=== PATIENT | male | born 1980 | race Caucasian/White ===

== ENCOUNTER 2018-02-01 23:06 | Inpatient (IN) | payer OTHER ==
[~2018-02-01] VITALS: Ht 170.2 cm; Wt 74.8 kg
--- NOTE | 2018-02-01 23:21 | NUR ---
BIBRA 860 PT "FOUND SEATED INFRONT OF A SHOPPING MALL"; ALCOHOL BREATH. NO S/S OF TRAUMA NOTED; "FSBS 146G/DL" PT AOX2 AT THIS TIME. RR EVEN AND UNLABORED. NO SOB NOTED. NAD NOTED. NO NVD AT THIS TIME. PT GOWNED AND PLACED ON MONITOR. DR. LAWSON AT BEDSIDE FOR EVAL.
--- NOTE | 2018-02-01 23:25 | NUR ---
CALLED LAB FOR BLOOD DRAW.
[2018-02-01] MEDS ORDERED: HALOPERIDOL LACTATE INJ 5 MG/ML VIAL IM ONE (23:30)
--- NOTE | 2018-02-01 23:32 | NUR ---
LAB AT BEDSIDE FOR BLOOD DRAW.
--- NOTE | 2018-02-01 23:35 | NUR ---
PT TO CT.
[2018-02-01 23:47] LABS: HEMATOCRIT 29 % (39-51); HEMOGLOBIN 9.3 g/dL (13.5-17.5); LYMPHOCYTES # (AUTO) 2.3 /CMM (0.8-4.8); MEAN CORPUSCULAR HGB CONC 32 g/dl (31.0-36.0); MEAN CORPUSCULAR VOLUME 85 fL (80-96); MONOCYTES # (AUTO) 0.7 /CMM (0.1-1.30); NEUTROPHILS # (AUTO) 1.4 /CMM (1.8-8.9); PLATELET COUNT (AUTO) 169 /CMM (150-450); RDW COEFFICIENT OF VARIATION 21.3 (11.5-15.0); RED BLOOD CELL COUNT(AUTO) 3.44 MIL/uL (4.5-6.0); WHITE BLOOD COUNT (AUTO) 4.7 K/uL (4.3-11.0)
[2018-02-01 23:57] LABS: CARBON DIOXIDE 23 mmol/L (21-32); CHLORIDE 89 mmol/L (98-107); CREATININE 0.9 mg/dL (0.6-1.3); GLUCOSE 84 mg/dL (74-106); POTASSIUM 3.6 mmol/L (3.5-5.1); SODIUM SERUM 122 mmol/L (136-145); UREA NITROGEN, BLOOD 6 mg/dL (7-18)
[2018-02-02 00:04] LABS: ALANINE AMINOTRANSFERASE 22 U/L (12-78); ALBUMIN 3.5 g/dL (3.4-5.0); ALCOHOL, BLOOD 446 mg/dL (0-0); ALKALINE PHOSPHATASE 191 U/L (46-116); ASPARTATE AMINOTRANSFERASE 34 U/L (15-37); BILIRUBIN,DIRECT 0.2 mg/dL (0.0-0.2); BILIRUBIN,TOTAL 0.4 mg/dL (0.2-1.0); TOTAL PROTEIN, SERUM 8.1 g/dL (6.4-8.2)
[2018-02-02 00:05] LABS: ACETAMINOPHEN < 0 ug/ml (10-30); SALICYLATE 0.4 mg/dL (2.8-20.0)
[2018-02-02 00:23] LABS: EOSINOPHILS % (MANUAL) 4 % (0-4); LYMPHOCYTES % (MANUAL) 66 % (16-48); MONOCYTES % (MANUAL) 5 % (0-11.0); NEUTROPHILS % (MANUAL) 25 (42-76)
[2018-02-02 01:13] LABS: CALCIUM, SERUM 7.9 mg/dL (8.5-10.1); CREATININE 0.8 mg/dL (0.6-1.3); POTASSIUM 3.9 mmol/L (3.5-5.1)
[2018-02-02] MEDS ORDERED: IV D5/ 0.9% NACL 1,000 ML IV ONE (01:28)
[2018-02-02] MEDS ORDERED: Thiamine 100 MG in IV D5W 50 ML IV SCH ×2 (01:30→02:00)
[2018-02-02] MEDS ORDERED: MAGNESIUM HYDROXIDE 30 ML UDC PO PRN (02:00)
[2018-02-02] MEDS ORDERED: ONDANSETRON HCL/PF 4 MG/2 ML VIAL IVP PRN (02:00)
[2018-02-02] MEDS ORDERED: ACETAMINOPHEN 325 MG TABLET PO PRN (02:00)
[2018-02-02] MEDS ORDERED: HYDROCODONE/APAP 5/325MG 1 EACH TABLET PO PRN (02:00)
[2018-02-02] MEDS ORDERED: Z GUARD REMEDY 2 OZ OINT TP PRN (02:00)
[2018-02-02] MEDS ORDERED: ZOLPIDEM TARTRATE 5 MG TABLET PO PRN (02:00)
[2018-02-02] MEDS ORDERED: MAG HYDROX/AL HYDROX/SIMETH 30 ML UDC PO PRN (02:00)
--- NOTE | 2018-02-02 02:15 | NUR ---
REPORT GIVEN TO ANUP MUNSON FOR JUNAID FOR TELE BED 324-1
--- NOTE | 2018-02-02 02:33 | NUR ---
haldol IM NOT GIVEN. PT IS SLEEPING.
--- NOTE | 2018-02-02 02:48 | NUR ---
PT TRANSFER TO MED/SURG VIA [facility]. PT IS STABLE.
--- NOTE | 2018-02-02 02:50 | NUR ---
MS/TELE/RN ADMITTED PATIENT FROM [facility] VIA [facility], PATIENT WAS SLEEPING, AROUSABLE, APPEAR COMFORTABLE, NO S/S OF PAIN, NO SIGNS OF DISTRESS NOTED. UNABLE TO DO ADMISSION THE PATIENT WAS SLEEPING AND NOT ABLE TO ANSWER TO QUESTIONS. MADE PATIENT COMFORTABLE IN BED, CLEANED, PUT CALL LIGHT IN REACH. ADMISSION ORDERS CARRIED OUT, WILL MONITOR.
[2018-02-02 04:00] VITALS: BP 116/73
[2018-02-02] MEDS: IV NS 0.9% 1,000 ML IV PRN ×2 (05:32→22:39)
--- NOTE | 2018-02-02 06:06 | NUR ---
MS/TELE/RN PATIENT STILL SLEEPING, APPEAR COMFORTABLE, BREATHING EVEN AND UNLABORED, CALL LIGHT IN REACH. ALL NEEDS ATTENDED AT THIS TIME, WILL CONTINUE TO MONITOR.
[2018-02-02 06:33] LABS: EOSINOPHILS % (AUTO) 9.7 % (0.0-6.0); HEMATOCRIT 28 % (39-51); HEMOGLOBIN 8.9 g/dL (13.5-17.5); LYMPHOCYTES # (AUTO) 2.2 /CMM (0.8-4.8); LYMPHOCYTES % (AUTO) 56.3 % (20.0-44.0); MEAN CORPUSCULAR HGB CONC 32 g/dl (31.0-36.0); MEAN CORPUSCULAR VOLUME 84 fL (80-96); MONOCYTES # (AUTO) 0.6 /CMM (0.1-1.30); MONOCYTES % (AUTO) 16.7 % (2.0-12.0); NEUTROPHILS # (AUTO) 0.7 /CMM (1.8-8.9); NEUTROPHILS % (AUTO) 17.3 % (43.0-81.0); PLATELET COUNT (AUTO) 132 /CMM (150-450); RDW COEFFICIENT OF VARIATION 21.9 (11.5-15.0); RED BLOOD CELL COUNT(AUTO) 3.28 MIL/uL (4.5-6.0); WHITE BLOOD COUNT (AUTO) 3.8 K/uL (4.3-11.0)
[2018-02-02 06:49] LABS: ALBUMIN 3.1 g/dL (3.4-5.0); BILIRUBIN,TOTAL 0.4 mg/dL (0.2-1.0); CALCIUM, SERUM 7.9 mg/dL (8.5-10.1); CREATININE 0.8 mg/dL (0.6-1.3); MAGNESIUM 1.5 mg/dL (1.8-2.4); PHOSPHORUS 3.4 mg/dL (2.5-4.9); POTASSIUM 3.5 mmol/L (3.5-5.1); TOTAL PROTEIN, SERUM 7.4 g/dL (6.4-8.2)
--- NOTE | 2018-02-02 07:30 | NUR ---
VERY GROGGY ON AM ROUNDS.
--- NOTE | 2018-02-02 07:40 | NUR ---
RN CHECKING LABS IN COMPUTER,QUESTIONED PT.HE STATES HE IS DIABETIC.IN COMPUTER STATES BGL 66 RECHECKED WITH ACCU-CHECK MACHINE AND GOT 94.
[2018-02-02 08:00] VITALS: BP_SYST 109; BP_SYST 118; BP_DIAS 61; BP_DIAS 69
[2018-02-02 08:03] LABS: EOSINOPHILS % (MANUAL) 12 % (0-4); LYMPHOCYTES % (MANUAL) 58 % (16-48); MONOCYTES % (MANUAL) 12 % (0-11.0); NEUTROPHILS % (MANUAL) 18 (42-76)
[2018-02-02] MEDS ORDERED: LEVE500T9 PO (08:09)
[2018-02-02] MEDS ORDERED: DIAZ5TAB PO (08:09)
[2018-02-02] MEDS: Folic acid 1 MG in IV D5W 50 ML IV SCH (09:09)
[2018-02-02] MEDS: Magnesium 1GM/D5W 100ML PREMIX 100 ML IV SCH ×2 (10:27→11:40)
--- NOTE | 2018-02-02 11:30 | NUR ---
PT. RECEIVING VITAMINS IV.ADDITIONALLY MG REPLACEMENT BEING DONE.
--- NOTE | 2018-02-02 12:00 | NUR ---
Yung NARAYANAN IN TO SEE PT.
--- NOTE | 2018-02-02 12:10 | NUR ---
DAVY ALERTED THAT MED RECON NEEDS TO BE DONE AND PT. IS ON DAVY PEREIRA AGREEABLE.
[2018-02-02] MEDS: Thiamine 100 MG in IV D5W 50 ML IV SCH (13:01)
[2018-02-02 16:00] VITALS: BP 132/85
--- NOTE | 2018-02-02 17:07 | NUR ---
HEAR MOANING FROM OUTSIDE PT. RM,RN IN TO RM. TO FIND PT. HAVING WHAT APPEARS TO BE GRAND MAL SEIZURE,LASTED TILL APPROXIMATELY 2 MINUTES TILL 1709.LADY CONTACTED,ORDERS RECEIVED.VS TAKEN 138/84,HRATE [id number] 94%.O2 ON INITIALLY AT 2L.
--- NOTE | 2018-02-02 17:29 | NUR ---
JUST RECEIVED ATIVAN ORDER AND 2 MG IV GIVEN-PHARMACY CONTACTED WELL TO PREPARE KEPPRA,AND MED GIVEN.
[2018-02-02] MEDS ORDERED: LORAZEPAM INJ 2 MG/ML VIAL IV PRN (17:30)
[2018-02-02] MEDS ORDERED: LEVETIRACETAM (500MG) 500 MG in IV NS 0.9% 100 ML IV ONE (18:00)
--- NOTE | 2018-02-02 18:07 | NUR ---
RANDALL LARSON IVPB.PT. TOLERATING WELL.AT FIRST SPEECH A LITTLE GARBLED.AND PT. DAZED.IV SITE LT. HAND LOOSE AND RETAPED. NEW IV START RT. FOREARM WITH #22 ANGIO.
--- NOTE | 2018-02-02 18:30 | NUR ---
PT. TO RECEIVE ORAL RANDALL PARRISH.
--- NOTE | 2018-02-02 19:35 | NUR ---
MS RN NOTE RECEIVED PATIENT FROM DAY SHIFT, PATIENT IS ALERT AND ORIENTEDX2, NO S/S OF RESPIRATORY DISTRESS AND DENIES PAIN AT THIS TIME. PT HAD AN EPISODE OF SZ THIS AFTERNOON, SEIZURE PRECAUTION WILL BE OBSERVED. IV ON RIGHT FA AND LEFT HAND ARE PATENT AND INTACT, FLUID IS RUNNING. SRX2, BED IN LOW POSITION, CALL LIGHT WITHIN REACH, WILL CONTINUE TO MONITOR PATIENT.
[2018-02-02 20:00] VITALS: BP 124/72
[2018-02-02] MEDS: LEVETIRACETAM (250 MG) 250 MG TABLET PO SCH (20:52)
[2018-02-02 23:52] LABS: APPEARANCE,URINE CLEAR (CLEAR); BILIRUBIN,URINE NEGATIVE (NEGATIVE); BLOOD, URINE NEGATIVE Ery/uL (NEGATIVE); COLOR,URINE YELLOW (YELLOW); KETONES,URINE NEGATIVE (NEGATIVE); LEUKOCYTE ESTERASE ,URINE NEGATIVE (NEGATIVE); NITRITE, URINE NEGATIVE (NEGATIVE); PROTEIN,URINE NEGATIVE (NEGATIVE); UGLUCOSE NEGATIVE (NEGATIVE); UROBILINOGEN,URINE 0.2 EU/dL (0.2)
--- NOTE | 2018-02-03 06:35 | NUR ---
MS RN NOTE PATIENT IS RESTING IN BED COMFORTABLY, NO S/S OF RESPIRATORY DISTRESS AND NO PAIN REPORTED. NO ACUTE EVENT NOTED THROUGHOUT THE SHIFT, TWO IV SITES ARE PATENT AND INTACT, FLUID IS STILL RUNNING. WILL ENDORSE TO DAY SHIFT NURSE FOR JUNAID.
--- NOTE | 2018-02-03 07:52 | NUR ---
RN OPENING NOTES RECEIVED PT. PT IS STABLE AND SLEEPING IN BED. NO S/S OF RESP DISTRESS OR SOB. PT IS ON SEIZURE PRECAUTIONS. PM NURSE REPORTED NO SZ ACTIVITY. LAST SEIZURE OCCURRED DURING DAY ON 02/02 LASTING 2 MINS. PT REFUSED AM LABS, WILL F/U WITH PT. SAFETY MEASURES IN PLACE, CALL LIGHT WITHIN REACH. WILL CONTINUE TO MONITOR.
[2018-02-03] MEDS: LEVETIRACETAM (250 MG) 250 MG TABLET PO SCH ×2 (08:51→20:50)
[2018-02-03] MEDS: Folic acid 1 MG in IV D5W 50 ML IV SCH (08:53)
[2018-02-03] MEDS: Thiamine 100 MG in IV D5W 50 ML IV SCH (08:53)
[2018-02-03 09:00] VITALS: BP 145/75
[2018-02-03] MEDS ORDERED: IBUPROFEN SUSP 100 MG/5 ML UDC ONE (11:04)
[2018-02-03 11:10] LABS: HEMATOCRIT 29 % (39-51); HEMOGLOBIN 9.2 g/dL (13.5-17.5); MEAN CORPUSCULAR HGB CONC 32 g/dl (31.0-36.0); MEAN CORPUSCULAR VOLUME 86 fL (80-96); PLATELET COUNT (AUTO) 108 /CMM (150-450); RDW COEFFICIENT OF VARIATION 21.3 (11.5-15.0); WHITE BLOOD COUNT (AUTO) 3.3 K/uL (4.3-11.0)
[2018-02-03 11:29] LABS: ALBUMIN 3.3 g/dL (3.4-5.0); BILIRUBIN,TOTAL 0.7 mg/dL (0.2-1.0); CREATININE 0.9 mg/dL (0.6-1.3); MAGNESIUM 1.8 mg/dL (1.8-2.4); PHOSPHORUS 3.9 mg/dL (2.5-4.9); POTASSIUM 4.3 mmol/L (3.5-5.1); TOTAL PROTEIN, SERUM 7.8 g/dL (6.4-8.2)
[2018-02-03 12:01] LABS: EOSINOPHILS % (MANUAL) 5 % (0-4); LYMPHOCYTES % (MANUAL) 24 % (16-48); MONOCYTES % (MANUAL) 10 % (0-11.0); NEUTROPHILS % (MANUAL) 61 (42-76)
[2018-02-03 16:00] VITALS: BP 150/108
[2018-02-03] MEDS: IV NS 0.9% 1,000 ML IV PRN (16:56)
--- NOTE | 2018-02-03 18:23 | NUR ---
RN CLOSING NOTE PT IN BED RESTING. NO S/S OF RESP DISTRESS OR SOB. NO C/O PAIN AT THIS TIME. PT DID NOT EXP ANY SZ ACTIVITY THROUGHOUT DAY. SEIZURE PRECAUTIONS REMAIN. FLUID RESTRICTION OF 1L/DAY REMAINS HYPONATREMIA PERSISTS. ALL PT NEEDS ANTICIPATED AND MET SAFETY MEASURES IN PLACE, CALL LIGHT WITHIN REACH. WILL ENDORSE TO LEAD ENTERPRISE ARCHITECT FOR JUNAID.
--- NOTE | 2018-02-03 19:30 | NUR ---
RN NOTES RECEIVED PATIENT IN BED AWAKE. AO X 2, ABLE TO MAKE NEEDS KNOWN. NO ACUTE DISTRESS NOTED. DENIES ANY PAIN AT THIS TIME. IV SITE PATENT, INTACT; IVF INFUSING ORDERED. SAFETY REMINDERS GIVEN. ON LOW BED WITH BILATERAL UPPER SIDE RAILS UP. CALL MERINO WITHIN EASY REACH. WILL CONTINUE TO MONITOR.
[2018-02-03 20:00] VITALS: BP 147/94
--- NOTE | 2018-02-04 06:10 | NUR ---
RN NOTES PER DR. BEGUM, NO NEED FOR BLOOD DRAW (NA LEVEL) TODAY.
--- NOTE | 2018-02-04 06:17 | NUR ---
RN NOTES PATIENT IN BED ASLEEP, EASILY AROUSABLE. RESPIRATIONS EVEN. NO SIGNS OF PAIN NOTED. DUE MEDS GIVEN WITH NO ASE NOTED. IVF INFUSING ORDERED. NEEDS ATTENDED. SAFETY PRECAUTIONS AND COMFORT MEASURES IN PLACE. WILL GIVE REPORT TO DAY SHIFT FOR CONTINUITY OF CARE.
[2018-02-04] MEDS: IV NS 0.9% 1,000 ML IV PRN (06:40)
[2018-02-04 08:00] VITALS: BP 150/109
--- NOTE | 2018-02-04 08:15 | NUR ---
RN OPENING NOTES RECEIVED PT. PT IS STABLE AND RESTING IN BED. NO S/S OF RESP DISTRESS/SOB. IV ACCESS DISLODGED UNINTENTIONALLY, REMOVED CATHETER FROM PT. PER R&D LAB TECHNICIAN REPORT, NO ADDITIONAL SZ ACTIVITY NOTED. PT UP FOR POSSIBLE D/C IN AM. SAFETY MEASURES IN PLACE, CALL LIGHT WITHIN REACH. WILL CONTINUE TO MONITOR.
[2018-02-04] MEDS: LEVETIRACETAM (250 MG) 250 MG TABLET PO SCH (08:44)
[2018-02-04 09:00] VITALS: BP 150/92
[2018-02-04] MEDS ORDERED: FOLIC ACID 1 MG TABLET PO SCH (09:00)
[2018-02-04] MEDS ORDERED: THIAMINE HCL 100 MG TABLET PO SCH (09:00)
--- NOTE | 2018-02-04 10:48 | NUR ---
Social service consult requested by SHENA Rubio for homelessness and alcohol intoxication. Pt. is a 37 year old male who was admitted to [facility] for hyponatremia and alcohol intoxication. Pt. was found intoxicated in a mall. JUAN met with pt. bedside. Pt. appears dirty and disheveled. Pt's fingernails have dirt in them. Pt. kept scratching himself during the assessment. Pt. was cooperative in answering questions that were asked of him. Pt. states is homeless and can't remember how long he has been homeless for. Pt. states he usually camps by [address] and [address] in [place]. Pt. states he is originally from [place]. Pt. states he use to have SSI but doesn't have it anymore. JUAN encouraged pt. to reinstate his SSI and offered him the phone number and address to Social Security office, however pt. declined. Pt. is an alcoholic and drinks two 24 ounces of malt liquor per day. Pt. denies drug use. Pt. states he smokes marijuana whenever he can get access to it. Pt. smokes cigarettes whenever he gets a chance but states, "for the most part, I do not smoke." Pt. has a history of Schizophrenia and does not take any medications. Pt. states," I refuse to take it." Pt. states he wants to go back toward [place] and will need bus tokens. JUAN informed pt. she will inform the charge nurse regarding him needing funds for transportation. JUAN offered pt. homeless alf placement, food resources and other homeless resources. However pt. declined them all. No other social service needs are requested at this time. SW is available, if needed. JUAN updated [facility] 3 TONIE Kinsey regarding pt's discharge plan.
--- NOTE | 2018-02-04 13:46 | NUR ---
DISCHARGE NOTE PT DISCHARGED FROM HOSPITAL. PT REFUSED ANY FOLLOW UPS FROM [employer] AND INSISTED ON BEING DISCHARGED HOME ALTHOUGH HE IS HOMELESS. PT IS STABLE, VSS, NO C/O PAIN. PT REFUSES TO TAKE ALL EXITE CARE/DC PAPERWORK. PT REFUSES VERBAL DISCHARGE TEACHING. ALL D/C PAPERWORK SIGNED BY PT, COPIED AND PLACED IN CHART. WOUND DOCUMENTATION PHOTOS TAKEN PRIOR TO DC. BOTH IV ACCESSES REMOVED. PT GIVEN $2 FOR BUS FARE. PRESCRIPTION COPIED AND PLACED IN CHART. ORIGINAL GIVEN BACK TO PT. PT LEFT HOSPITAL EN ROUTE TO BUS STOP BY HIMSELF.
== END 2018-02-04 14:00 | disposition home or self-care (01) | DRG 775 ==
LOC: ER 23:07 → TELE 02-02 02:01 → MED 02-02 08:49
PROVIDERS: ADMIT Internal Medicine; ATTEND Internal Medicine
DX: F10.129 Alcohol abuse with intoxication, unspecified (principal); E83.42 Hypomagnesemia; E87.1 Hypo-osmolality and hyponatremia; G40.909 Epilepsy, unspecified, not intractable, without status epilepticus; D64.9 Anemia, unspecified; F17.200 Nicotine dependence, unspecified, uncomplicated; Z71.6 Tobacco abuse counseling
CPT/HCPCS: 36415; 70450-TC; 80048-TC; 80053-TC; 80061-TC; 80076-TC; 80305; 81000-TC; 82962-TC; 83690-TC; 83735-TC; 84100-TC; 85025-TC; 87081-TC; A4606; G0480; J1953; J2060; J3411; J3475; J3490; J7030; J7042; J7060; J7070; Z7610